=== PATIENT | female | born 1985 | race Caucasian/White ===

== ENCOUNTER 2022-06-01 11:00 | Day surgery (SDC) | payer BC ==
[2022-05-31 15:24] LABS: Urine Color Yellow (Yellow)
[2022-05-31 15:25] LABS: Urine Bilirubin NEGATIVE (Negative); Urine Blood 3+ (Negative); Urine Clarity Slightly Cloudy (Clear); Urine Glucose Negative (Negative); Urine Protein Trace (Negative); Urine Urobilinogen 0.2 mg/dL (0.2-1.0); Urine pH 5.5 (5.0-7.0)
[2022-05-31 15:30] LABS: Urine Bacteria <20 /HPF (<20)
[2022-05-31 15:31] LABS: Urine Mucus 1+ /HPF (None Seen)
[2022-05-31 15:32] LABS: Absolute Lymphocytes (CBC) 2.2 K/uL (0.7-4.9); Hematocrit 24.8 % (36.0-45.0); Lymphocytes % 33.5 % (15.3-44.8); MCV 90.7 fL (80-100); MPV 8.4 fL (7.6-11.3); RBC Red Blood Cell Count 2.73 M/uL (3.86-4.86)
[2022-05-31 15:43] LABS: Protime INR 1.07
[2022-05-31 15:45] LABS: SARS-CoV-2 Antigen Rapid Res Negative (Negative)
--- NOTE | 2022-05-31 18:56 | PREOPHP ---
Date of Admission: 06/01/2022 History Of Present Illness: Amena Anthony is a -[id number] female with significant dysfuncti onal uterine bleeding. Endometrial biopsy showed no problems. Today though on her preoperative exam , she obviously has a prolapsed uterine fibroid probably emanating from the endocervical area. Obvio usly, we will proceed on with a hysteroscopy, MyoSure, and ablation. Hemoglobin is actually better t randolph it was yesterday at 8.9. She is quite alert. I have Dr. Paniagua on its done by in case she has needed. Full preoperative counseling concerning procedure and possible complications including infe ction; blood loss; anesthetic complications; injuries to the cervix or uterus. The patient knows ful ly well this does not constitute all the possible problems and knows that we cannot guarantee the eff ectiveness of the surgery. Family History: Mother with stroke. Grandmother both paternal and maternal with breast cancer. Gra ndparent with thyroid cancer. We have discussed genetic studies for BRCA1 and 2. Past Surgical History: The patient has had her tonsils removed and tumor removed from the breast and tubal sterilization. Allergies: SHE IS ALLERGIC TO CODEINE. Social History: She is a smoker. Physical Examination: HEENT: Clear. Pupils equal, round, reactive to light and accommodation. Conjunctivae well perfused . No oral, lingual, or buccal lesions. Chest and Lungs: Clear. Heart: Without murmurs, thrills, heaves, or rubs. Breasts: Without masses. Abdomen: Scaphoid without problems. No organomegaly. Extremities: Clear. Assessment And Plan: Pelvic exam shows uterus relatively normal size, but on today's visit, she has a prolapsed fibroid at least 2.5 cm in diameter at its largest point. It is pedunculated, cannot be removed here in the office, but we will get it tomorrow. ARLIN/JUMA Voice ID: [id number]
[2022-06-01] MEDS ORDERED: CEFAZOLIN SODIUM 1 GM/VIAL ONE (11:29)
[2022-06-01] MEDS ORDERED: Ringers Lactate 1,000 ML IV ONE (11:29)
[2022-06-01 12:08] VITALS: O2SAT 100
[2022-06-01] MEDS ORDERED: propofoL 200 MG/20 ML VIAL IV ONE (12:11)
[2022-06-01] MEDS ORDERED: MIDAZOLAM HCL 2 MG/2 ML INJ ONE (12:11)
[2022-06-01] MEDS ORDERED: FENTANYL CITR 100 MCG/2 ML ONE ×2 (12:11→14:02)
[2022-06-01] MEDS ORDERED: dexAMETHasone 10 MG/ML VIAL ONE (12:12)
[2022-06-01] MEDS ORDERED: SILVER NITRATE 1 APPL TOP ONE (12:12)
[2022-06-01] MEDS ORDERED: KETOROLAC 30 MG/ML INJ ONE ×2 (12:12→15:44)
[2022-06-01] MEDS ORDERED: LIDOCAINE 2% MPF 5 ML VIAL ONE (12:12)
[2022-06-01] MEDS ORDERED: ONDANSETRON 4 MG/2 ML VIAL ONE (12:12)
[2022-06-01] MEDS ORDERED: LIDOCAINE 1% W/EPI 1:100,000 MDV 20 ML VIAL ONE (12:12)
[2022-06-01 16:02] VITALS: TEMP 97.2
[2022-06-01 16:06] VITALS: BP 94/62
--- NOTE | 2022-06-02 02:05 | OP ---
Surgeon: Matt Cabezas MD History: Amena Anthony is a 36-year-old female with dysfunctional uterine bleeding, large endocervic al polyp. Procedure Performed: Hysteroscopy, MyoSure endometrial ablation, removal of large endocervical polyp . Indications: Full preoperative counseling concerning procedure and possible complications including infection; blood loss; anesthetic complications; injury to bladder, bowel, ureter; postoperative comp lications; clots in legs; pneumonia. The patient knows fully well this does not constitute all the p ossible problems that could occur during or following surgery. Anesthesia: General anesthesia, endotracheal intubation. Dr. Paniagua, surgical consult during the procedure. Procedure In Detail: After adequate general anesthesia, the endocervical polyp was removed in 2-3 pi eces, sent to pathology. A hysteroscopy was then performed. There was some fluffy type tissue in th e right side of the uterus, this was removed with the MyoSure procedure. The cervix, which is extrem enma patulous because of the large endocervical polyp was clamped and then sutured with 0 Vicryl, but to no avail we could not get a good seal. Gauze was used as well as a gel. At this point, Dr. Isaiah osorio was asked to help. She did a pursestring suture with 0 Vicryl, observed the endometrial cavity, and was able to perform the procedure. Depth of 5, width of 3.9, and for a time of 50 sec onds after activation. Estimated blood loss during the procedure 150 cc or less. The patient tolera twin all procedures well. Transferred to the recovery room in good condition. Final Diagnoses: Dysfunctional uterine bleeding, large endocervical polyp removed, hysteroscopy, Oscar Sure and endometrial ablation performed. ARLIN/KAVINL Voice ID: [id number] Report ID: [id number]
--- NOTE | 2022-06-02 02:10 | DS ---
Date of Discharge: 06/01/2022 History: The patient underwent removal of endocervical polyp, hysteroscopy, MyoSure, and endometrial ablation. Estimated blood loss 150 cc or less. General anesthetic. Will be observed for the next 2 -3 hours and then dismissed to return to my office in 1 week for followup, to report any temperature elevation of 100 degrees or greater, severe pain, heavy bleeding, or any other type of abnormalities. Large polyp sent to pathology, but it looks benign at this point. Final Diagnoses: Dysfunctional bleeding, hysteroscopy, NovaSure ablation and removal of large endoce rvical polyps. ARLIN/JUMA Voice ID: [id number] Report ID: [id number]
--- NOTE | 2022-06-02 23:40 | CON ---
Date of Consultation: 06/01/2022 Physician Requesting Consult: Dr. Alexis Cabezas M.D. Reason For Consultation: Difficulty with cavity distention and visualizations and difficulty maintai shan intracavitary pressure and completing an ablation due to patulous cervix. Then, I was called into the consultation from the operating room. The patient was already anesthesti zed in a dorsal lithotomy position. The procedure was already underway. I scrubbed in and evaluated the situation. Cervix was patulous and dilated significantly to over 20-[place]. There was a MyoSure scope on the fi eld and MyoSure reach an ablation device that was already on the field. A cavity evaluation was attempted with the MyoSure scope. There was difficulty evacuating the clots. As the MyoSure reach was contaminated at the tip, opened the MyoSure Lite device. Using the suction on the MyoSure Lite after entering the intrauterine cavity, the cervix was clamped with the help of Allis clamps, and after adequate distention was obtained, the clots were evacuated a nd the cavity was evaluated. There was a very small amount of polypoid tissue on the right lateral w all closer to the posterior wall. This is the area from where a polyp has already been removed with the help of the MyoSure reach at the fundus. There was no evidence of any perforation. There was ju st endometrial lining disruption from instrumentation. Both tubal ostia were visualized. Rest of th e cavity was fairly unremarkable. The scope was then removed. Measurements of the uterus were condu cted and there were all documented. For the cervix in order for us to get a seal for the ablation, a circumferential 0 Vicryl stitch was placed around too tight as a pursestring like a cerclage. Once this was done, the scope was able to maintain the pressure without any problems for further clamping of the cervix and ablation was done w ithout any problems. Please refer to Dr. Cabezas's note for all his procedures. This is just an intra operative consult. Once the procedure was completed, I had scrubbed out and Dr. Cabezas was going to f inish all his rest of the procedure and operative note dictation. The patient is a 36-year-old lady with possible polyps, question fibroids, brought in for cavity eval uation and polypectomy, which they were removed by Dr. Cabezas and an ablation. BALDEV/JUMA Voice ID: [id number] Report ID: [id number]
== END 2022-06-01 16:20 | disposition home or self-care (01) ==
LOC: OR 11:00
PROVIDERS: ATTEND Specialist
PROC: 0U5B8ZZ Destruction of Endometrium, Via Natural or Artificial Opening Endoscopic (ICD-10-PCS; principal; 2022-06-01 12:30)
PROC: 0UBC7ZX Excision of Cervix, Via Natural or Artificial Opening, Diagnostic (ICD-10-PCS; 2022-06-01 12:30)
DX: N93.8 Other specified abnormal uterine and vaginal bleeding (principal); N84.1 Polyp of cervix uteri; Z20.822 Contact with and (suspected) exposure to COVID-19
CPT/HCPCS: 85025; 81001; 36415; 86900; 86850; 84703; 85610; 86901; 85730; 87811; 58563; 58558; J2704; J2250; J3010 ×2; J1100; J7120; J2405; J0690; 88305